=== PATIENT | male | born 1995 | race African-American/Black ===

== ENCOUNTER 2018-01-26 11:19 | Emergency (ER) | payer MEDICAID, OTHER, SELFPAY ==
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
[2018-01-26] MEDS ORDERED: HYDROcodone/Acetaminophen 10/325 mg Tablet ONE (12:39)
== END 2018-01-26 12:45 | disposition home or self-care (01) ==
LOC: ERS 11:19
DX: S61.253A Open bite of left middle finger without damage to nail, initial encounter (principal); S20.412A Abrasion of left back wall of thorax, initial encounter; J45.909 Unspecified asthma, uncomplicated; F41.9 Anxiety disorder, unspecified; F31.9 Bipolar disorder, unspecified; W50.3XXA Accidental bite by another person, initial encounter

== ENCOUNTER 2018-03-30 08:10 | Emergency (ER) | payer OTHER ==
[2018-03-30 09:12] LABS: Hemoglobin 17.5 g/dL (14.0-18.0); Mean Corpuscular HGB CONC 35.9 g/dL (32.0-36.0); Mean Corpuscular Volume 86.5 fL (78.0-98.0); RBC Distribution Width 11.4 % (11.5-14.5); Red Blood Cell (RBC) Count 5.64 mill/uL (4.00-5.20); White Blood Cell (WBC) Count 2.7 thou/uL (4.8-10.8)
[2018-03-30 09:15] LABS: ALT (SGPT) 14 U/L (8-55); AST (SGOT) 18 U/L (5-34); Albumin 4.7 g/dL (3.5-5.0); Alkaline Phosphatase 49 U/L (Less than 750); Anion Gap 18 mmol/L (10-20); BUN (Urea Nitrogen) 18 mg/dL (8.9-20.6); Bilirubin, Total 1.4 mg/dL (0.2-1.2); CK (CPK) 309 U/L (30-200); Calc. Creatinine Clearance 0 mL/min (70-130); Calcium 9.9 mg/dL (7.8-10.44); Carbon Dioxide 20 mmol/L (22-29); Chloride 105 mmol/L (98-107); Estimated GFR-MDRD Greater than 90; Globulin 3.2 g/dL (2.4-3.5); Glucose 94 mg/dL (70-105); Potassium 3.4 mmol/L (3.5-5.1); Protein, Total 7.9 g/dL (6.0-8.3); Sodium 140 mmol/L (136-145)
[2018-03-30 09:18] LABS: CKMB 1.3 ng/mL (0-6.6); Troponin I Less than 0.010 ng/mL (< 0.028)
[2018-03-30 09:20] LABS: #Lymphocytes 1.2 thou/uL (1.20-3.40); #Monocytes 0.2 thou/uL (0.11-0.59); #Neutrophils 1.3 thou/uL (1.40-6.50); %Basophils 0.8 % (0.0-1.0); %Eosinophils 1.3 % (0.0-10.0); %Lymphocytes 43.7 % (28.0-48.0); %Monocytes 8.3 % (0.0-4.0); Mean Platelet Volume 9.3 fL (7.4-10.4); Platelet Count 116 thou/uL (130-400)
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
--- NOTE | 2018-03-30 11:19 | RAD ---
LEFT HAND THREE VIEWS: HISTORY: Pain. COMPARISON: 01/26/2018 FINDINGS: No fracture. No cortical irregularity. No periosteal reaction. Joint space is preserved. IMPRESSION: Unremarkable left hand three views. POS: [facility]
--- NOTE | 2018-03-30 11:22 | RAD ---
RIGHT ELBOW FOUR VIEWS: HISTORY: Pain. COMPARISON: None. FINDINGS: No joint effusion. No fracture. No malalignment. Joint spaces are preserved. IMPRESSION: No posttraumatic change. POS: [facility]
[2018-03-30] MEDS ORDERED: Potassium Chloride 20 MEQ TAB ONE (11:32)
--- NOTE | 2018-04-01 16:57 | EKG ---
Test Reason : Blood Pressure : / mmHG Vent. Rate : 070 BPM Atrial Rate : 080 BPM P-R Int : 134 ms QRS Dur : 086 ms QT Int : 358 ms P-R-T Axes : 053 091 052 degrees QTc Int : 386 ms Sinus rhythm with marked sinus arrhythmia Rightward axis Early repolarization Borderline ECG Confirmed by HARI CHATTERJEE DO ([id number]), editor [place] ([id number]) on 04/01/2018 4:56:28 PM Referred By: Confirmed By:HARI CHATTERJEE DO
== END 2018-03-30 12:01 | disposition home or self-care (01) ==
LOC: ERS 08:10
DX: R07.89 Other chest pain (principal); S60.222A Contusion of left hand, initial encounter; Z71.6 Tobacco abuse counseling; J45.909 Unspecified asthma, uncomplicated; F41.9 Anxiety disorder, unspecified; F31.9 Bipolar disorder, unspecified; F17.210 Nicotine dependence, cigarettes, uncomplicated; Z79.899 Other long term (current) drug therapy; W22.8XXA Striking against or struck by other objects, initial encounter
CPT/HCPCS: 71045; 80053; 82553; 84484; 85025; 93005; 94760; 99406

== ENCOUNTER 2018-04-03 19:47 | Emergency (ER) | payer OTHER ==
[2018-04-03 20:18] LABS: Bilirubin Small (Negative); Blood, Urine Negative (Negative); Clarity CLEAR (Clear); Glucose, Urine (Dipstick) Negative (Negative); Leukocyte Negative (Negative); Nitrite Negative (Negative); Protein, Urine (Dipstick) 100 mg/dL (Neg-Trace); Specific Gravity, Urine 1.027 (1.002-1.036)
[2018-04-03 20:21] LABS: Bacteria/HPF None Seen HPF (None Seen); Hyaline Casts/LPF 7-10 HYALINE CAST LPF (0-3 Hyaline); Pathc Cast-AUWi Flag 0.43 (0-2.49); RBC/HPF 0-3 HPF (0-3); Squamous Epithelial 0-3 HPF (0-3); WBC/HPF 0-3 HPF (0-3)
[2018-04-03 20:29] LABS: #Basophils 0.1 thou/uL (0.0-0.2); #Lymphocytes 1.3 thou/uL (1.20-3.40); #Monocytes 0.3 thou/uL (0.11-0.59); #Neutrophils 2.5 thou/uL (1.40-6.50); %Basophils 1.3 % (0.0-1.0); %Eosinophils 0.3 % (0.0-10.0); %Lymphocytes 30.7 % (28.0-48.0); %Monocytes 6.9 % (0.0-4.0); %Neutrophils 60.8 % (31.0-61.0); Hemoglobin 17.5 g/dL (14.0-18.0); Mean Corpuscular Hemoglobin 31.1 pg (25.0-35.0); Mean Corpuscular Volume 86.5 fL (78.0-98.0); Mean Platelet Volume 9.7 fL (7.4-10.4); Platelet Count 122 thou/uL (130-400); RBC Distribution Width 11.4 % (11.5-14.5); Red Blood Cell (RBC) Count 5.63 mill/uL (4.00-5.20); White Blood Cell (WBC) Count 4.1 thou/uL (4.8-10.8)
[2018-04-03 20:29] LABS: Amphetamine Not Detected (NotDetected); Barbiturates Screen Not Detected (NotDetected); Benzodiazepine Screen Not Detected (NotDetected); Cocaine Metabolite Screen Not Detected (NotDetected); Medtox Control Line Valid? VALID (VALID); Medtox Reader # READER 1; Methadone Not Detected (NotDetected); Methamphetamine Not Detected (NotDetected); Opiate Screen Not Detected (NotDetected); Oxycodone Screen Not Detected (NotDetected); Phencyclidine (PCP) Not Detected (NotDetected); THC/Cannabinoid Screen Detected (NotDetected); Tricyclic Screen Not Detected (NotDetected)
[2018-04-03 20:45] LABS: ALT (SGPT) 11 U/L (8-55); AST (SGOT) 19 U/L (5-34); Alkaline Phosphatase 53 U/L (Less than 750); Anion Gap 15 mmol/L (10-20); BUN (Urea Nitrogen) 14 mg/dL (8.9-20.6); Bilirubin, Total 1.6 mg/dL (0.2-1.2); CK (CPK) 497 U/L (30-200); Calc. Creatinine Clearance 0 mL/min (70-130); Calcium 10.3 mg/dL (7.8-10.44); Carbon Dioxide 25 mmol/L (22-29); Chloride 105 mmol/L (98-107); Estimated GFR-MDRD Greater than 90; Globulin 3.3 g/dL (2.4-3.5); Glucose 84 mg/dL (70-105); Potassium 3.5 mmol/L (3.5-5.1); Protein, Total 8.3 g/dL (6.0-8.3); Sodium 141 mmol/L (136-145)
[2018-04-03 20:46] LABS: Acetaminophen Less than 6.0 mcg/mL (10.0-30.0); Alcohol Less than 10 mg/dL (Less than 10); Salicylate Less than 8.0 mg/dL (15.0-30.0)
--- NOTE | 2018-04-05 12:44 | EKG ---
Test Reason : Blood Pressure : / mmHG Vent. Rate : 049 BPM Atrial Rate : 049 BPM P-R Int : 126 ms QRS Dur : 092 ms QT Int : 408 ms P-R-T Axes : -14 097 051 degrees QTc Int : 368 ms Sinus bradycardia Rightward axis Borderline ECG Confirmed by CARLOS HARMON D.O. ([id number]), film editor supervisor [place] HORTON ([id number]) on 04/05/2018 12:44:20 PM Referred By: Confirmed By:CARLOS HARMON D.O.
== END 2018-04-03 22:29 | disposition home or self-care (01) ==
LOC: ERS 19:47
DX: F41.0 Panic disorder [episodic paroxysmal anxiety] (principal); R06.4 Hyperventilation; J45.909 Unspecified asthma, uncomplicated; F31.9 Bipolar disorder, unspecified; F17.210 Nicotine dependence, cigarettes, uncomplicated
CPT/HCPCS: 36415; 80053; 80306; 80307; 81003; 81015; 82550; 84443; 85025; 93005

== ENCOUNTER 2018-04-25 14:27 | Emergency (ER) | payer OTHER ==
--- NOTE | 2018-04-25 16:29 | RAD ---
RIGHT HAND 3 VIEWS: Date: 04/25/18 HISTORY: Pain. COMPARISON: 02/28/14. FINDINGS: No fracture. No cortical irregularity. No periosteal reaction. IMPRESSION: Unremarkable 3 views right hand. POS: [facility]
== END 2018-04-25 16:34 | disposition home or self-care (01) ==
LOC: ERS 14:27
DX: S60.221A Contusion of right hand, initial encounter (principal); J45.909 Unspecified asthma, uncomplicated; F41.9 Anxiety disorder, unspecified; F31.9 Bipolar disorder, unspecified; F17.210 Nicotine dependence, cigarettes, uncomplicated; Y04.0XXA Assault by unarmed brawl or fight, initial encounter

== ENCOUNTER 2018-05-16 22:27 | Emergency (ER) | payer OTHER ==
[2018-05-16] MEDS ORDERED: Ibuprofen 800 MG TAB ONE (23:30)
[2018-05-16] MEDS ORDERED: Acetaminophen 500 MG TAB ONE (23:30)
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
== END 2018-05-16 23:58 | disposition home or self-care (01) ==
LOC: ERS 22:27
DX: B34.9 Viral infection, unspecified (principal); J45.909 Unspecified asthma, uncomplicated; F41.9 Anxiety disorder, unspecified; F31.9 Bipolar disorder, unspecified
CPT/HCPCS: 71046; 87081; 87430; 87804

== ENCOUNTER 2018-06-24 10:53 | Emergency (ER) | payer OTHER ==
[2018-06-24 12:06] LABS: PTT 27.3 SEC (22.9-36.1); Prothrombin Time 13.3 SEC (12.0-14.7)
[2018-06-24 12:07] LABS: Hemoglobin 16.8 g/dL (14.0-18.0); Mean Corpuscular HGB CONC 33.7 g/dL (32.0-36.0); Mean Corpuscular Hemoglobin 29.4 pg (27.0-31.0); Mean Corpuscular Volume 87.2 fL (78.0-98.0); RBC Distribution Width 12.1 % (11.5-14.5); Red Blood Cell (RBC) Count 5.72 mill/uL (4.70-6.10)
[2018-06-24 12:18] LABS: ALT (SGPT) 14 U/L (8-55); AST (SGOT) 18 U/L (5-34); Albumin 4.4 g/dL (3.5-5.0); Alkaline Phosphatase 47 U/L (40-150); Anion Gap 13 mmol/L (10-20); BUN (Urea Nitrogen) 11 mg/dL (8.9-20.6); Bilirubin, Total 0.8 mg/dL (0.2-1.2); Calc. Creatinine Clearance 0 mL/min (70-130); Calcium 9.5 mg/dL (7.8-10.44); Carbon Dioxide 23 mmol/L (22-29); Chloride 107 mmol/L (98-107); Estimated GFR-MDRD Greater than 90; Globulin 2.6 g/dL (2.4-3.5); Glucose 98 mg/dL (70-105); Lipase 15 U/L (8-78); Potassium 3.8 mmol/L (3.5-5.1); Sodium 139 mmol/L (136-145)
[2018-06-24 12:28] LABS: #Monocytes 0.2 thou/uL (0.11-0.59); #Neutrophils 2.2 thou/uL (1.40-6.50); %Basophils 0.9 % (0.0-1.0); %Eosinophils 1.2 % (0.0-10.0); %Lymphocytes 28.7 % (21.0-51.0); %Monocytes 6.7 % (0.0-10.0); %Neutrophils 62.5 % (42.0-75.0); Large Platelets SLIGHT; MDiff Complete? YES; Mean Platelet Volume 10.6 fL (7.4-10.4); PLT Morphology Comment Appears Decreased; Platelet Count 96 thou/uL (130-400); RBC Morphology Normal; White Blood Cell (WBC) Count 3.5 thou/uL (4.8-10.8)
[2018-06-24] MEDS ORDERED: ISOVUE-370 76%-LOCM 1 ML ONE (12:41)
[2018-06-24] MEDS ORDERED: Ketorolac Tromethamine 30 MG/ML VIAL ONE (12:49)
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
== END 2018-06-24 13:14 | disposition home or self-care (01) ==
LOC: ERS 10:53
DX: M54.2 Cervicalgia (principal); M25.551 Pain in right hip; R07.9 Chest pain, unspecified; F41.9 Anxiety disorder, unspecified; F31.9 Bipolar disorder, unspecified; Z79.899 Other long term (current) drug therapy; J45.909 Unspecified asthma, uncomplicated; Y04.8XXA Assault by other bodily force, initial encounter
CPT/HCPCS: 36415; 70450; 71260; 72125; 80053; 83605; 83690; 85025; 85610; 85730; 96374; J1885

== ENCOUNTER 2018-08-06 10:46 | Emergency (ER) | payer OTHER, SELFPAY | END 2018-08-06 12:48 | disposition home or self-care (01) | LOC: ERS 10:46 | DX: J20.9 Acute bronchitis, unspecified (principal); J01.90 Acute sinusitis, unspecified; J45.909 Unspecified asthma, uncomplicated | CPT/HCPCS: 99283 ==

== ENCOUNTER 2019-03-06 13:27 | Emergency (ER) | payer SELFPAY ==
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
[2019-03-06 14:45] LABS: Hemoglobin 17.7 g/dL (14.0-18.0); Mean Corpuscular HGB CONC 35.8 g/dL (32.0-36.0); Mean Corpuscular Hemoglobin 29.8 pg (27.0-31.0); Mean Corpuscular Volume 83.4 fL (78.0-98.0); Mean Platelet Volume 9.9 fL (7.4-10.4); Platelet Count 115 thou/uL (130-400); RBC Distribution Width 11.8 % (11.5-14.5); Red Blood Cell (RBC) Count 5.94 mill/uL (4.70-6.10); White Blood Cell (WBC) Count 3.3 thou/uL (4.8-10.8)
[2019-03-06 15:01] LABS: Eosinophils 5 % (0-10); Lymphocytes 69 % (21-51); MDiff Complete? YES; Monocytes 7 % (0-10); Neutrophil 19 % (42-75); Platelet Morphology Comment Appears Decreased; RBC Morphology Normal
[2019-03-06 15:05] LABS: Albumin 4.5 g/dL (3.5-5.0)
[2019-03-06 15:05] LABS: Amphetamine Detected (NotDetected); Barbiturates Screen Not Detected (NotDetected); Benzodiazepine Screen Not Detected (NotDetected); Cocaine Metabolite Screen Not Detected (NotDetected); Medtox Control Line Valid? VALID (VALID); Medtox Reader # READER 1; Methadone Not Detected (NotDetected); Methamphetamine Detected (NotDetected); Opiate Screen Not Detected (NotDetected); Oxycodone Screen Not Detected (NotDetected); Phencyclidine (PCP) Not Detected (NotDetected); THC/Cannabinoid Screen Detected (NotDetected); Tricyclic Screen Not Detected (NotDetected)
[2019-03-06 15:06] LABS: Chloride 107 mmol/L (98-107); Potassium 3.8 mmol/L (3.5-5.1); Sodium 138 mmol/L (136-145)
[2019-03-06 15:07] LABS: Calcium 10.2 mg/dL (7.8-10.44); Glucose 94 mg/dL (70-105); Protein, Total 7.5 g/dL (6.0-8.3)
[2019-03-06 15:09] LABS: Bilirubin, Total 1.7 mg/dL (0.2-1.2)
[2019-03-06 15:10] LABS: Alkaline Phosphatase 57 U/L (40-150)
[2019-03-06 15:11] LABS: BUN (Urea Nitrogen) 17 mg/dL (8.9-20.6); Calc. Creatinine Clearance 0 mL/min (70-130); Estimated GFR-MDRD Greater than 90
[2019-03-06 15:11] LABS: Bacteria/HPF None Seen HPF (None Seen); Bilirubin Negative (Negative); Blood, Urine Negative (Negative); Clarity Clear (Clear); Glucose, Urine (Dipstick) Normal (Negative); Leukocyte Negative Leu/uL (Negative); Mucous/LPF 1+ LPF (<2+); Nitrite Negative (Negative); Protein, Urine (Dipstick) 100 mg/dL (Neg-Trace); RBC/HPF 0-3 HPF (0-3); Squamous Epithelial 0-3 HPF (0-3); WBC/HPF 0-3 HPF (0-3)
[2019-03-06 15:12] LABS: AST (SGOT) 19 U/L (5-34)
[2019-03-06 15:13] LABS: ALT (SGPT) 15 U/L (8-55)
[2019-03-06 15:14] LABS: Carbon Dioxide 20 mmol/L (22-29)
[2019-03-06 15:28] LABS: Anion Gap 15 mmol/L (10-20)
== END 2019-03-06 16:20 | disposition home or self-care (01) ==
LOC: ERS 13:27
DX: F41.1 Generalized anxiety disorder (principal); J02.9 Acute pharyngitis, unspecified; F19.10 Other psychoactive substance abuse, uncomplicated; F17.210 Nicotine dependence, cigarettes, uncomplicated; F31.9 Bipolar disorder, unspecified
CPT/HCPCS: 36415; 70450; 80053; 80306; 81003; 81015; 82550; 84443; 85025; 93005; 96360

== ENCOUNTER 2019-05-12 01:05 | Emergency (ER) | payer SELFPAY ==
[2019-05-12 01:52] LABS: Bacteria/HPF None Seen HPF (None Seen); Bilirubin Negative (Negative); Blood, Urine Negative (Negative); Clarity Turbid (Clear); Glucose, Urine (Dipstick) Normal (Negative); Leukocyte 500 Leu/uL (Negative); Nitrite Negative (Negative); Protein, Urine (Dipstick) 70 mg/dL (Neg-Trace); RBC/HPF None Seen HPF (0-3); Squamous Epithelial 0-3 HPF (0-3); WBC/HPF Greater than 50 HPF (0-3)
[2019-05-12] MEDS ORDERED: cefTRIAXone\\ROCEPHIN 1 GM VIAL ONE (02:30)
[2019-05-12] MEDS ORDERED: Azithromycin 250 MG TAB ONE ×3 (02:30→02:41)
[2019-05-12] MEDS ORDERED: Lidocaine 1% PF 5 ML VIAL ONE (02:30)
[2019-05-15 21:04] LABS: Chlam.trachomatis by PCR,Urine Not Detected (NotDetected)
== END 2019-05-12 03:00 | disposition home or self-care (01) ==
LOC: ERS 01:05
DX: A64 Unspecified sexually transmitted disease (principal); F31.9 Bipolar disorder, unspecified; F41.9 Anxiety disorder, unspecified; F17.210 Nicotine dependence, cigarettes, uncomplicated
CPT/HCPCS: 81003; 81015; 87491; 87591; 96372; 99283; J0696; J2001

== ENCOUNTER 2019-08-21 12:07 | Emergency (ER) | payer SELFPAY ==
[2019-08-21] MEDS ORDERED: diphenhydrAMINE 12.5 MG/5 ML UDCUP ONE (12:48)
[2019-08-21] MEDS ORDERED: Metoclopramide HCl 10 MG/2 ML VIAL ONE (12:48)
[2019-08-21] MEDS ORDERED: Acetaminophen 500 MG TAB ONE (12:48)
[2019-08-21] MEDS ORDERED: diphenhydrAMINE 50 MG/ML VIAL ONE (12:49)
--- NOTE | 2019-08-21 13:11 | CT ---
EXAM: CT brain without contrast HISTORY: Headache COMPARISON: 03/06/2019 TECHNIQUE: Multiple contiguous axial images were obtained and a CT of the brain without contrast. FINDINGS: The brain is normal in morphology and attenuation without focal lesions or confluent areas of infarction. There is no evidence of hydrocephalus, intracranial hemorrhage, or extra-axial fluid collection. The calvarium and overlying soft tissues are unremarkable. The visualized paranasal sinuses and masto id air cells are well aerated. IMPRESSION: No evidence of acute intracranial abnormality
== END 2019-08-21 14:14 | disposition home or self-care (01) ==
LOC: ERS 12:07
DX: R51 Headache (principal); F41.9 Anxiety disorder, unspecified; F31.9 Bipolar disorder, unspecified; F17.210 Nicotine dependence, cigarettes, uncomplicated
CPT/HCPCS: 70450; 96365; 96375; J1200; J2765; Q0163

== ENCOUNTER 2019-10-07 17:08 | Emergency (ER) | payer OTHER, SELFPAY ==
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
[2019-10-07] MEDS ORDERED: Acetaminophen 500 MG TAB ONE (19:19)
== END 2019-10-07 20:03 | disposition home or self-care (01) ==
LOC: ERS 17:08
DX: S60.131A Contusion of right middle finger with damage to nail, initial encounter (principal); J45.909 Unspecified asthma, uncomplicated; F41.9 Anxiety disorder, unspecified; F31.9 Bipolar disorder, unspecified; F17.210 Nicotine dependence, cigarettes, uncomplicated; W23.0XXA Caught, crushed, jammed, or pinched between moving objects, initial encounter

== ENCOUNTER 2020-01-09 08:59 | Emergency (ER) | payer OTHER, SELFPAY | END 2020-01-09 09:17 | disposition home or self-care (01) | LOC: ERS 08:59 | DX: L02.415 Cutaneous abscess of right lower limb (principal); F31.9 Bipolar disorder, unspecified; J45.909 Unspecified asthma, uncomplicated; F17.210 Nicotine dependence, cigarettes, uncomplicated | CPT/HCPCS: 99283 ==

== ENCOUNTER 2020-05-31 10:26 | Emergency (ER) | payer SELFPAY ==
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
--- NOTE | 2020-05-31 12:16 | RAD ---
XR Pelvis AP STANDARD History: Fall Comparison: None. Findings: Obturator rings are intact. No SI joint widening. Lumbosacral transitional vertebra of S1 w ith incomplete fusion of the transverse process on the right. Small right acetabular labral ossification. Impression: No acute fracture or malalignment.
--- NOTE | 2020-05-31 12:17 | RAD ---
XR Shoulder Rt 3 View STANDARD History: Fall. Pain Comparison: None. Findings: Visualized ribs are intact. Clavicles intact. No acute fracture or malalignment. Impression: No acute osseous abnormality.
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
--- NOTE | 2020-05-31 12:18 | RAD ---
XR Chest 1 View Portable History: Fall. Pain Comparison: Radiograph 2018 Findings: Lungs are clear. No pneumothorax or effusion. Cardiac silhouette and mediastinal contours a re within normal limits. No acute osseous abnormality. Impression: No acute intrathoracic abnormality.
[2020-05-31] MEDS ORDERED: Acetaminophen 500 MG TAB ONE (12:53)
== END 2020-05-31 13:34 | disposition home or self-care (01) ==
LOC: ERS 10:26
DX: S62.001A Unspecified fracture of navicular [scaphoid] bone of right wrist, initial encounter for closed fracture (principal); M25.511 Pain in right shoulder; J45.909 Unspecified asthma, uncomplicated; F41.9 Anxiety disorder, unspecified; F31.9 Bipolar disorder, unspecified; F17.210 Nicotine dependence, cigarettes, uncomplicated; F29 Unspecified psychosis not due to a substance or known physiological condition; W10.9XXA Fall (on) (from) unspecified stairs and steps, initial encounter
CPT/HCPCS: 71045; 72170

== ENCOUNTER 2020-12-22 16:29 | Emergency (ER) | payer SELFPAY ==
[2020-12-22 17:02] LABS: #Eosinphils 0.1 thou/uL (0.0-0.7); #Lymphocytes 1.3 thou/uL (1.20-3.40); #Monocytes 0.4 thou/uL (0.11-0.59); %Basophils 0.1 % (0.0-1.0); %Eosinophils 1.9 % (0.0-10.0); %Lymphocytes 18.9 % (21.0-51.0); %Monocytes 5.6 % (0.0-10.0); %Neutrophils 73.5 % (42.0-75.0); Hemoglobin 16.9 g/dL (14.0-18.0); Mean Corpuscular HGB CONC 33.5 g/dL (32.0-36.0); Mean Corpuscular Hemoglobin 28.4 pg (27.0-31.0); Mean Platelet Volume 9.6 fL (7.4-10.4); Platelet Count 148 thou/uL (130-400); RBC Distribution Width 11.5 % (11.5-14.5); Red Blood Cell (RBC) Count 5.93 mill/uL (4.70-6.10); White Blood Cell (WBC) Count 6.7 thou/uL (4.8-10.8)
[2020-12-22] MEDS ORDERED: Ondansetron PF 4 MG/2 ML Vial ONE (17:04)
[2020-12-22] MEDS ORDERED: Acetaminophen 500 MG TAB ONE (17:04)
[2020-12-22] MEDS ORDERED: Ketorolac Tromethamine 30 MG/ML VIAL ONE (17:04)
[2020-12-22 17:12] LABS: INR-International Normal Ratio 0.9; Prothrombin Time 12.3 sec (12.0-14.7)
[2020-12-22 17:13] LABS: PTT 27.6 sec (22.9-36.1)
[2020-12-22 17:21] LABS: Troponin I Less than 0.010 ng/mL (< 0.028)
[2020-12-22 17:35] LABS: ALT (SGPT) 54 U/L (8-55); AST (SGOT) 27 U/L (5-34); Albumin 4.3 g/dL (3.5-5.0); Alkaline Phosphatase 78 U/L (40-110); Anion Gap 13 mmol/L (10-20); BUN (Urea Nitrogen) 13 mg/dL (8.9-20.6); Bilirubin, Total 0.6 mg/dL (0.2-1.2); Calc. Creatinine Clearance 0 mL/min (70-130); Calcium 9.8 mg/dL (7.8-10.44); Carbon Dioxide 24 mmol/L (22-29); Chloride 102 mmol/L (98-107); Globulin 3.4 g/dL (2.4-3.5); Glucose 123 mg/dL (70-105); Potassium 3.7 mmol/L (3.5-5.1); Protein, Total 7.7 g/dL (6.0-8.3); Sodium 135 mmol/L (136-145)
== END 2020-12-22 18:10 | disposition home or self-care (01) ==
LOC: ERS 16:29
DX: J06.9 Acute upper respiratory infection, unspecified (principal); Z79.899 Other long term (current) drug therapy; J45.909 Unspecified asthma, uncomplicated; F17.210 Nicotine dependence, cigarettes, uncomplicated
CPT/HCPCS: 71045; 80053; 83605; 84484; 85025; 85610; 85730; 87040; 93005; 96374; 96375; J1885; J2405

== ENCOUNTER 2021-01-26 14:12 | Emergency (ER) | payer SELFPAY ==
[2021-01-26] MEDS ORDERED: Ketorolac Tromethamine 30 MG/ML VIAL ONE (15:30)
[2021-01-26 23:40] LABS: SARS-CoV-2 PCR by NAA Not Detected (NotDetected)
== END 2021-01-26 16:10 | disposition home or self-care (01) ==
LOC: ERS 14:12
DX: J06.9 Acute upper respiratory infection, unspecified (principal); R11.0 Nausea; Z20.822 Contact with and (suspected) exposure to COVID-19; J45.909 Unspecified asthma, uncomplicated; F17.210 Nicotine dependence, cigarettes, uncomplicated
CPT/HCPCS: 71045; 96372; 99283; J1885; U0003; U0005

== ENCOUNTER 2022-09-23 18:48 | Emergency (ER) | payer SELFPAY | END 2022-09-23 19:41 | disposition left against medical advice (07) | LOC: ERS 18:48 | DX: Z53.29 Procedure and treatment not carried out because of patient's decision for other reasons (principal) ==

== ENCOUNTER 2022-11-23 11:40 | Emergency (ER) | payer SELFPAY ==
[2022-11-23 12:38] LABS: #Basophils 0.1 thou/uL (0.0-0.2); #Eosinphils 0.2 thou/uL (0.0-0.7); #Lymphocytes 1.8 thou/uL (1.20-3.40); #Monocytes 0.4 thou/uL (0.11-0.59); #Neutrophils 1.9 thou/uL (1.40-6.50); %Basophils 1.2 % (0.0-1.0); %Eosinophils 3.9 % (0.0-10.0); %Lymphocytes 42.4 % (21.0-51.0); %Monocytes 8.7 % (0.0-10.0); %Neutrophils 43.8 % (42.0-75.0); Hemoglobin 16.3 g/dL (14.0-18.0); Mean Corpuscular HGB CONC 33.1 g/dL (32.0-36.0); Mean Corpuscular Hemoglobin 28.9 pg (27.0-31.0); Mean Corpuscular Volume 87.3 fl (78.0-98.0); Mean Platelet Volume 10.5 fL (7.4-10.4); Platelet Count 133 10x3/uL (130-400); RBC Distribution Width 12.4 % (11.5-14.5); Red Blood Cell (RBC) Count 5.63 mill/uL (4.70-6.10); White Blood Cell (WBC) Count 4.3 10x3/uL (4.8-10.8)
[2022-11-23 12:46] LABS: ALT (SGPT) 25 U/L (8-55); AST (SGOT) 16 U/L (5-34); Albumin 4.4 g/dL (3.5-5.0); Alkaline Phosphatase 56 U/L (40-110); Anion Gap 13 mmol/L (10-20); BUN (Urea Nitrogen) 10 mg/dL (8.9-20.6); Bilirubin, Total 0.5 mg/dL (0.2-1.2); Calc. Creatinine Clearance 0 mL/min (70-130); Calcium 9.3 mg/dL (7.8-10.44); Carbon Dioxide 23 mmol/L (22-29); Chloride 107 mmol/L (98-107); Estimated GFR 99; Globulin 2.6 g/dL (2.4-3.5); Glucose 100 mg/dL (70-105); Sodium 139 mmol/L (136-145)
== END 2022-11-23 14:00 | disposition home or self-care (01) ==
LOC: ERS 11:40
DX: R07.89 Other chest pain (principal); D72.819 Decreased white blood cell count, unspecified; F17.210 Nicotine dependence, cigarettes, uncomplicated
CPT/HCPCS: 36415; 71046; 80053; 84484; 85025; 93005

== ENCOUNTER 2022-12-21 11:51 | Emergency (ER) | payer SELFPAY ==
[2022-12-21] MEDS ORDERED: HYDROcodone/Acetaminophen 5/325 mg Tablet ONE (13:32)
[2022-12-21] MEDS ORDERED: Ibuprofen 200 MG TAB ONE (13:32)
[2022-12-21] MEDS ORDERED: Dexamethasone 4 mg/ml Vial ONE (13:32)
[2022-12-21 14:24] LABS: SARS-CoV-2 NAA Rapid Test Not Detected (NotDetected)
== END 2022-12-21 14:36 | disposition home or self-care (01) ==
LOC: ERS 11:51
DX: H65.01 Acute serous otitis media, right ear (principal); H73.91 Unspecified disorder of tympanic membrane, right ear; F17.210 Nicotine dependence, cigarettes, uncomplicated; Z20.822 Contact with and (suspected) exposure to COVID-19
CPT/HCPCS: 71045; 87081; 87430; 87804; 93005; J1100; U0002

== ENCOUNTER 2023-02-09 16:07 | Emergency (ER) | payer SELFPAY ==
[2023-02-09 16:50] LABS: #Eosinphils 0.3 thou/uL (0.0-0.7); #Monocytes 0.3 thou/uL (0.11-0.59); #Neutrophils 2.6 thou/uL (1.40-6.50); %Basophils 0.7 % (0.0-1.0); %Eosinophils 6.5 % (0.0-10.0); %Lymphocytes 27.5 % (21.0-51.0); %Monocytes 7.4 % (0.0-10.0); %Neutrophils 57.5 % (42.0-75.0); Hemoglobin 16.1 g/dL (14.0-18.0); Mean Corpuscular HGB CONC 34.8 g/dL (32.0-36.0); Mean Corpuscular Hemoglobin 29.6 pg (27.0-31.0); Mean Corpuscular Volume 84.9 fl (78.0-98.0); Mean Platelet Volume 12.2 fL (7.4-10.4); Platelet Count 144 10x3/uL (130-400); RBC Distribution Width 12.6 % (11.5-14.5); Red Blood Cell (RBC) Count 5.44 mill/uL (4.70-6.10); White Blood Cell (WBC) Count 4.5 10x3/uL (4.8-10.8)
[2023-02-09] MEDS ORDERED: Ketorolac Tromethamine 30 MG/ML VIAL ONE (16:50)
[2023-02-09 17:15] LABS: ALT (SGPT) 15 U/L (8-55); AST (SGOT) 14 U/L (5-34); Albumin 3.9 g/dL (3.5-5.0); Alkaline Phosphatase 61 U/L (40-110); Anion Gap 13 mmol/L (10-20); BUN (Urea Nitrogen) 13 mg/dL (8.9-20.6); Bilirubin, Total 0.6 mg/dL (0.2-1.2); Calc. Creatinine Clearance 0 mL/min (70-130); Calcium 9.1 mg/dL (7.8-10.44); Carbon Dioxide 21 mmol/L (22-29); Chloride 109 mmol/L (98-107); Estimated GFR 105; Globulin 2.5 g/dL (2.4-3.5); Glucose 98 mg/dL (70-105); Potassium 4.2 mmol/L (3.5-5.1); Protein, Total 6.4 g/dL (6.0-8.3); Sodium 139 mmol/L (136-145)
[2023-02-09] MEDS ORDERED: Fluorescein Opthalmic Strip ONE (18:13)
[2023-02-09] MEDS ORDERED: Proparacaine 0.5% Opth 15 ML BOT ONE (18:14)
== END 2023-02-09 18:34 | disposition home or self-care (01) ==
LOC: ERS 16:07
DX: R07.9 Chest pain, unspecified (principal); H57.11 Ocular pain, right eye; D72.819 Decreased white blood cell count, unspecified; F17.210 Nicotine dependence, cigarettes, uncomplicated
CPT/HCPCS: 36415; 71045; 80053; 84484; 85025; 93005; 96374; J1885

== ENCOUNTER 2023-04-24 11:36 | Emergency (ER) | payer SELFPAY | END 2023-04-24 12:24 | disposition home or self-care (01) | LOC: ERS 11:36 | DX: J01.90 Acute sinusitis, unspecified (principal); L60.0 Ingrowing nail; F17.210 Nicotine dependence, cigarettes, uncomplicated | CPT/HCPCS: 99283 ==

== ENCOUNTER 2023-10-12 16:44 | Emergency (ER) | payer MEDICAID ==
[2023-10-12 17:37] LABS: #Eosinphils 0.1 thou/uL (0.0-0.7); #Monocytes 0.4 thou/uL (0.11-0.59); %Basophils 0.7 % (0.0-1.0); %Eosinophils 3.7 % (0.0-10.0); %Lymphocytes 50.7 % (21.0-51.0); %Monocytes 12.8 % (0.0-10.0); %Neutrophils 31.8 % (42.0-75.0); Hematocrit 48.3 % (42.0-52.0); Hemoglobin 16.9 g/dL (14.0-18.0); Mean Corpuscular Hemoglobin 30.1 pg (27.0-31.0); Mean Corpuscular Volume 86.1 fl (78.0-98.0); Mean Platelet Volume 11.8 fL (7.4-10.4); Platelet Count 154 10x3/uL (130-400); RBC Distribution Width 12.9 % (11.5-14.5); Red Blood Cell (RBC) Count 5.61 mill/uL (4.70-6.10)
[2023-10-12 17:59] LABS: ALT (SGPT) 23 U/L (8-55); AST (SGOT) 18 U/L (5-34); Albumin 4.6 g/dL (3.5-5.0); Alkaline Phosphatase 61 U/L (40-110); Anion Gap 13 mmol/L (10-20); BUN (Urea Nitrogen) 15 mg/dL (8.9-20.6); Calc. Creatinine Clearance 0 mL/min (70-130); Calcium 10.2 mg/dL (7.8-10.44); Carbon Dioxide 27 mmol/L (22-29); Chloride 103 mmol/L (98-107); Estimated GFR 106; Globulin 2.9 g/dL (2.4-3.5); Glucose 87 mg/dL (70-105); Potassium 4.2 mmol/L (3.5-5.1); Protein, Total 7.5 g/dL (6.0-8.3); Sodium 139 mmol/L (136-145)
[2023-10-12 18:00] LABS: Acetaminophen Less than 10 mcg/mL (10.0-30.0); Alcohol Less than 10.0 mg/dL (Less than 10); Magnesium 2.5 mg/dL (1.6-2.6); Salicylate Less than 8.0 mg/dL (15.0-30.0)
[2023-10-12 18:01] LABS: Troponin I Less than 0.010 ng/mL (< 0.028)
[2023-10-12] MEDS ORDERED: Acetaminophen 500 MG TAB ONE (18:33)
[2023-10-12 18:57] LABS: Bacteria/HPF None Seen HPF (None Seen); Bilirubin Negative (Negative); Blood, Urine Negative (Negative); CAUTI Indications for Culture Alt mental st,lethar; Clarity Clear (Clear); Glucose, Urine (Dipstick) Normal (Negative); Ketone, Urine Negative (Negative); Leukocyte Negative Leu/uL (Negative); Nitrite Negative (Negative); Protein, Urine (Dipstick) 10 mg/dL (Neg-Trace); RBC/HPF 0-3 HPF (0-3); Specific Gravity, Urine 1.026 (1.002-1.036); Squamous Epithelial None Seen HPF (0-3); WBC/HPF 0-3 HPF (0-3)
[2023-10-12 19:03] LABS: Amphetamine Detected (NotDetected); Barbiturates Screen Not Detected (NotDetected); Benzodiazepine Screen Not Detected (NotDetected); Cocaine Metabolite Screen Not Detected (NotDetected); Methadone Not Detected (NotDetected); Methamphetamine Detected (NotDetected); Opiate Screen Not Detected (NotDetected); Oxycodone Screen Not Detected (NotDetected); Phencyclidine (PCP) Not Detected (NotDetected); THC/Cannabinoid Screen Detected (NotDetected); Tricyclic Screen Not Detected (NotDetected)
[2023-10-12 19:05] LABS: Urine Culture Reflex No No
== END 2023-10-12 23:40 | disposition home or self-care (01) ==
LOC: ERS 16:44
DX: I31.9 Disease of pericardium, unspecified (principal); R55 Syncope and collapse; R29.701 NIHSS score 1; F17.210 Nicotine dependence, cigarettes, uncomplicated
CPT/HCPCS: 36415; 70450; 71045; 80053; 80306; 80307; 81001; 83735; 84484; 85025; 93005

== ENCOUNTER 2023-12-20 12:45 | Emergency (ER) | payer OTHER, SELFPAY | END 2023-12-20 13:55 | disposition home or self-care (01) | LOC: ERS 12:45 | DX: T40.715A Adverse effect of cannabis, initial encounter (principal); F17.210 Nicotine dependence, cigarettes, uncomplicated | CPT/HCPCS: 99284 ==

== ENCOUNTER 2024-02-20 11:50 | Emergency (ER) | payer OTHER ==
[2024-02-20] MEDS ORDERED: Ketorolac Tromethamine 30 MG (1 mL) VIAL ONE (13:00)
== END 2024-02-20 13:40 | disposition home or self-care (01) ==
LOC: ERS 11:50
DX: S63.501A Unspecified sprain of right wrist, initial encounter (principal); F17.210 Nicotine dependence, cigarettes, uncomplicated; Z91.81 History of falling; Y04.2XXA Assault by strike against or bumped into by another person, initial encounter; Y92.59 Other trade areas as the place of occurrence of the external cause
CPT/HCPCS: 96372; J1885

== ENCOUNTER 2025-04-25 01:48 | Emergency (ER) | payer OTHER ==
[2025-04-25] MEDS ORDERED: Acetaminophen 500 MG TAB ONE (02:58)
[2025-04-25 03:02] LABS: #Basophils 0.03 10x3/uL (0.0-0.2); #Eosinophils 0.10 10x3/uL (0.0-0.7); #Monocytes 0.46 10x3/uL (0.11-0.59); #Neutrophils 1.77 10x3/uL (1.40-6.50); %Basophils 0.6 % (0.0-1.0); %Eosinophils 2.0 % (0.0-10.0); %Lymphocytes 51.8 % (21.0-51.0); %Monocytes 9.3 % (0.0-10.0); %Neutrophils 36.1 % (42.0-75.0); Hematocrit 42.4 % (42.0-52.0); Hemoglobin 14.6 g/dL (14.0-18.0); Mean Corpuscular Hemoglobin 29.0 pg (27.0-31.0); Mean Corpuscular Volume 84.3 fL (78.0-98.0); Platelet Count 181 10x3/uL (130-400); Red Blood Cell (RBC) Count 5.03 mill/uL (4.70-6.10); White Blood Cell (WBC) Count 4.92 10x3/uL (4.8-10.8)
[2025-04-25 03:19] LABS: ALT (SGPT) 9 U/L (Less than 45); AST (SGOT) 13 U/L (11-34); Acetaminophen Less than 10 mcg/mL (Less than 10); Albumin 4.1 g/dL (3.1-4.5); Alkaline Phosphatase 60 U/L (40-110); Anion Gap 16 mmol/L (10-20); BUN (Urea Nitrogen) 19 mg/dL (8.9-20.6); Bilirubin, Total 0.6 mg/dL (0.3-1.2); Calc. Creatinine Clearance 0 mL/min (70-130); Calcium 8.9 mg/dL (7.8-10.44); Carbon Dioxide 22 mmol/L (22-29); Chloride 106 mmol/L (98-107); Globulin 2.9 g/dL (2.4-3.5); Glucose 110 mg/dL (70-105); Potassium 3.7 mmol/L (3.5-5.1); Salicylate Less than 8.0 mg/dL (Less than 8.0); Sodium 140 mmol/L (136-145)
[2025-04-25 03:20] LABS: CK (CPK) 258 U/L (30-200)
== END 2025-04-25 07:00 | disposition home or self-care (01) ==
LOC: ERS 01:48
DX: F12.10 Cannabis abuse, uncomplicated (principal); I10 Essential (primary) hypertension; F17.210 Nicotine dependence, cigarettes, uncomplicated
CPT/HCPCS: 80053; 80307; 82550; 85025

== ENCOUNTER 2025-06-12 12:55 | Emergency (ER) | payer OTHER ==
[2025-06-12 16:42] LABS: #Basophils 0.03 10x3/uL (0.0-0.2); #Eosinophils 0.08 10x3/uL (0.0-0.7); #Monocytes 0.31 10x3/uL (0.11-0.59); #Neutrophils 0.97 10x3/uL (1.40-6.50); %Basophils 1.0 % (0.0-1.0); %Eosinophils 2.7 % (0.0-10.0); %Lymphocytes 52.2 % (21.0-51.0); %Monocytes 10.6 % (0.0-10.0); %Neutrophils 33.2 % (42.0-75.0); Hematocrit 41.5 % (42.0-52.0); Hemoglobin 14.1 g/dL (14.0-18.0); Mean Corpuscular Hemoglobin 29.0 pg (27.0-31.0); Mean Corpuscular Volume 85.2 fL (78.0-98.0); Platelet Count 132 10x3/uL (130-400); Red Blood Cell (RBC) Count 4.87 mill/uL (4.70-6.10); White Blood Cell (WBC) Count 2.93 10x3/uL (4.8-10.8)
[2025-06-12] MEDS ORDERED: levETIRAcetam 500 MG (5 mL) VIAL ONE (16:45)
[2025-06-12] MEDS ORDERED: Ketorolac Tromethamine 30 MG (1 mL) VIAL ONE (16:45)
[2025-06-12 17:17] LABS: Acetaminophen Less than 10 mcg/mL (Less than 10); Salicylate Less than 8.0 mg/dL (Less than 8.0)
[2025-06-12 17:18] LABS: ALT (SGPT) 7 U/L (Less than 45); AST (SGOT) 19 U/L (11-34); Albumin 3.9 g/dL (3.1-4.5); Alkaline Phosphatase 46 U/L (40-110); Anion Gap 15 mmol/L (10-20); BUN (Urea Nitrogen) 16 mg/dL (8.9-20.6); Bilirubin, Total 0.3 mg/dL (0.3-1.2); Calc. Creatinine Clearance 0 mL/min (70-130); Calcium 9.1 mg/dL (7.8-10.44); Carbon Dioxide 27 mmol/L (22-29); Chloride 106 mmol/L (98-107); Globulin 2.7 g/dL (2.4-3.5); Glucose 79 mg/dL (70-105); Potassium 4.5 mmol/L (3.5-5.1); Sodium 143 mmol/L (136-145)
[2025-06-12 18:03] LABS: Bacteria/HPF None Seen HPF (None Seen); CAUTI Indications for Culture Pelvic or flank pain; Glucose, Urine (Dipstick) Normal (Negative); Leukocyte Negative Leu/uL (Negative); Protein, Urine (Dipstick) Negative (Neg-Trace); RBC/HPF 0-3 HPF (0-3); Specific Gravity, Urine 1.024 (1.002-1.036); WBC/HPF 0-3 HPF (0-3)
[2025-06-12 18:09] LABS: Urine Culture Reflex No No
[2025-06-12 18:10] LABS: Cocaine Metabolite Screen Negative (Negative); THC/Cannabinoid Screen PRELIM POSITIVE (Negative); Tricyclic Screen Negative (Negative)
[2025-06-12 23:45] LABS: Chlam.trachomatis by PCR,Urine DETECTED (NotDetected); GC N.gonorrhoeae PCR,UrineVOID Not Detected (NotDetected)
== END 2025-06-12 18:08 | disposition home or self-care (01) ==
LOC: ERS 12:55
DX: G40.909 Epilepsy, unspecified, not intractable, without status epilepticus (principal); S06.0XAD Concussion with loss of consciousness status unknown, subsequent encounter; Y04.8XXD Assault by other bodily force, subsequent encounter; I10 Essential (primary) hypertension; F17.210 Nicotine dependence, cigarettes, uncomplicated
CPT/HCPCS: 70450; 80053; 80306; 80307; 81001; 85025; 87491; 87591; 96365; 96375; J1885; J1953